=== PATIENT | male | born 1990 | race Caucasian/White ===

== ENCOUNTER 2016-09-17 16:34 | Emergency (ER) | payer SELFPAY ==
--- NOTE | ~2016-09-17 | ER ---
PATIENT'S NAME: MORRIS JUNE [facility] AGE: 25 Y [address] ROOM: [place] [address] LOCATION: [facility] ADMIT DATE: 09/17/2016 ER/Outpatient Report DISCHARGE DATE: FAMILY PHYSICIAN: Physician, Unknown ATTENDING PHYSICIAN: Gabino Santizo Time of arrival: 1637 hours. Time of Exam: 1637 hours. CHIEF COMPLAINT: Right ear pain. HISTORY OF PRESENT ILLNESS: The patient states he has had right ear pain for the last 2 days. He has had some nasal congestion, runny nose, sore throat. Has not felt feverish. Has not had any injury to his ear. ALLERGIES: NO KNOWN ALLERGIES. MEDICATIONS: No current medications. PAST MEDICAL HISTORY: Recurrent ear infections as a child. PAST SURGICAL HISTORY: Right leg surgery. SOCIAL HISTORY: Smokes half pack per day. Denies use of drugs. Drinks alcohol on weekends socially. REVIEW OF SYSTEMS: Negative other than those mentioned in the HPI. PHYSICAL EXAMINATION: VITAL SIGNS: Weight 89.1 kg, blood pressure is 130/75, pulse of 90, respirations 18, temperature of 97.4 tympanic, O2 saturation is 96% on room air. He is awake, alert, and oriented x4. SKIN: [place], warm, and dry. RESPIRATIONS: Even and nonlabored. HEENT: Left TM is dull. Right ear canal is reddened and swollen. Right TM is reddened. No drainage noted. Nasal is boggy. Oropharynx is clear. PATIENT'S NAME: MORRIS JUNE [facility] AGE: 25 Y [address] ROOM: [place] [address] LOCATION: [facility] ADMIT DATE: 09/17/2016 ER/Outpatient Report DISCHARGE DATE: FAMILY PHYSICIAN: Physician, Unknown ATTENDING PHYSICIAN: Gabino Santizo NECK: Supple. No lymphadenopathy. LUNGS: Lung sounds are clear throughout. HEART: Regular rate and rhythm. IMPRESSION: 1. Right otitis externa. 2. Right otitis media. PLAN: Home, rest, fluids. Tylenol or ibuprofen for discomfort. Prescription was written for Cortisporin HC eardrops and amoxicillin antibiotics. He is to follow up with his primary provider if symptoms persist or worsen. He verbalized understanding. ANGELA MARQUEZ MD DJ/jessie /[id number] d: 09/18/16 0100 t: 10/02/16 1001, OUTPATIENT REPORT
== END 2016-09-17 16:50 | disposition disaster alternative care site (69) ==
LOC: EDBD 16:34 → GMED 16:34
DX: H66.91 Otitis media, unspecified, right ear (principal); H60.91 Unspecified otitis externa, right ear; F17.210 Nicotine dependence, cigarettes, uncomplicated